=== PATIENT | male | born 1960 | race Caucasian/White ===

== ENCOUNTER 2016-11-18 18:12 | Emergency (ER) | payer OTHER ==
[~2016-11-18] VITALS: Wt 108.5 kg
[~2016-11-18 18:12] MED LIST: CEPH-443 PO; IBUP-1542 PO
[2016-11-18] MEDS ORDERED: MECLIZINE 12.5 MG TAB PO ONE (19:30)
--- NOTE | 2016-11-18 19:55 | RADRPT ---
PROCEDURE: CT Brain without contrast. CLINICAL INDICATION: Dizziness. TECHNIQUE: A CT of the brain was performed on multidetector high-resolution CT scanner utilizing a xial sections from the skull base through the vertex without contrast. The scan was reviewed in sof t tissue brain and high frequency resolution bone algorithm windows. Images were reviewed on a high -resolution PACS workstation. One or more the following does reduction techniques were utilized: Aut omated exposure control, adjustment of the mA/ or kV according to patient's size, or use of iterativ e reconstruction technique. The exam CTDI = 42.93 mGy and the DLP = 720.23 mGy-cm. COMPARISON: None available. FINDINGS: The ventricles and sulci are mildly prominent indicative of volume loss. There is no intracranial h emorrhage, mass effect or midline shift. No abnormal intra-axial or extra-axial fluid collections a re seen. The encarnacion/white matter differentiation is preserved. There are mild scattered foci of hypoattenuation in the white matter, which are nonspecific in etiol ogy but likely reflect chronic small vessel ischemic changes. Small old lacunar infarct is noted in the right lentiform nucleus. There are moderate intracranial vascular calcifications consistent wi th atherosclerosis. The visualized paranasal sinuses are essentially clear. IMPRESSION: 1. No acute intracranial hemorrhage, transcortical infarction or mass effect. 2. Moderate intracranial atherosclerosis and mild chronic small vessel ischemic changes. 3. Small old lacunar infarct is noted in the right lentiform nucleus. 4. Mild generalized cerebral volume loss. RPTAT: HH .Cynthia Goodman MD, MD Date Time Electronically viewed and signed by .Cynthia Goodman MD, MD on 11/18/2016 19:54 .N/
[2016-11-18 19:57] LABS: BASOPHIL # 0.1 10^3/ul (0.0-0.1); EOSINOPHILS # 0.4 10^3/ul (0.0-0.5); EOSINOPHILS % 3.8 % (0.0-7.0); HEMATOCRIT 45.3 % (42.0-52.0); HEMOGLOBIN 15.4 g/dl (14.0-18.0); LYMPHOCYTES % 44.5 % (15.0-51.0); MEAN CORPUSCULAR HEMOGLOBIN 30.7 pg (29.0-33.0); MEAN CORPUSCULAR VOLUME 90.4 fl (82.0-101.0); MEAN PLATELET VOLUME 9.7 fl (7.4-10.4); MONOCYTE # 0.9 10^3/ul (0.3-0.9); MONOCYTES % 7.9 % (0.0-11.0); NEUTROPHILS % 42.1 % (39.0-77.0); PLATELET COUNT 194 10^3/UL (140-415); RED BLOOD COUNT 5.01 10^6/ul (4.70-6.10); RED CELL DISTRIBUTION WIDTH 12.2 % (11.5-14.5); WHITE BLOOD COUNT 11.2 10^3/ul (4.8-10.8)
--- NOTE | 2016-11-18 20:01 | RADRPT ---
PROCEDURE: XR Chest. CLINICAL INDICATION: Chest Pain. TECHNIQUE: Single frontal view of the chest was obtained COMPARISON: Chest x-ray 04/06/2013 FINDINGS: The cardiomediastinal silhouette is within normal limits. No pneumothorax, pleural effusion, or consolidation is identified. There is no evidence of pulmonary vascular congestion. The osseous structures, as visualized, are unremarkable. IMPRESSION: No evidence of acute cardiopulmonary process. RPTAT: QQ Physician Kieran Date Time Electronically viewed and signed by Physician Kieran on 11/18/2016 20:01 CONCHA/
[2016-11-18 20:17] LABS: INR 0.85; PROTIME 11.6 Sec (12.2-14.2); PT RATIO 0.9
[2016-11-18 20:18] LABS: PARTIAL THROMBOPLASTIN TIME 27.1 Sec (25.0-35.0)
[2016-11-18 20:21] LABS: ANION GAP 14 (8-16); BLOOD UREA NITROGEN 12 mg/dl (7-20); CALCIUM 9.1 mg/dl (8.4-10.2); CARBON DIOXIDE 23 mmol/L (21-31); CHLORIDE 103 mmol/L (97-110); CREATININE 0.98 mg/dl (0.61-1.24); GLUCOSE 103 mg/dl (70-220); POTASSIUM 3.7 mmol/L (3.5-5.1); SODIUM 136 mmol/L (135-144)
[2016-11-18 20:33] LABS: TROPONIN-I < 0.012 ng/ml (0.00-0.12)
[2016-11-18] MEDS ORDERED: MECL12.574 PO (20:45)
[2016-11-18 21:10] VITALS: BP 157/88; PULSE 72; RESP 18; TEMP 98.2
--- NOTE | 2016-11-18 21:18 | ERD ---
ER Documentation Chief Complaint Date/Time DATE: 11/18/16 TIME: 21:15 Chief Complaint DIZZINESS, NAUSEA, NO ABD PAIN, ONSET 3 DAYS HPI This patient is a 56-year-old male with past medical history of high cholesterol presenting to the emergency department with complaints of dizziness , nausea, ongoing intimately for the past week. He states he feels the room is spinning. Symptoms are worse when he closes his eyes. He only takes meds for high cholesterol. He does feel slightly dizzy now. He also has nausea. He denies chest pain, shortness of breath, abdominal pain, fevers, or other symptoms. ROS All systems reviewed and are negative except as per history of present illness. Medications Home Meds Active Scripts Meclizine Hcl* (Antivert*) 12.5 Mg Tab, 12.5 MG PO Q6H Y for DIZZINESS, #20 TAB Prov:NICO LEAL PA-C 11/18/16 Ibuprofen* (Motrin*) 600 Mg Tab, 600 MG PO Q6H Y for PAIN AND OR ELEVATED TEMP, #30 TAB Prov:JANETTE HENRIQUEZ NP 10/21/15 Cephalexin* (Keflex*) 500 Mg Capsule, 500 MG PO QID for 10 Days, CAP Prov:JANETTE HENRIQUEZ NP 10/21/15 Reported Medications [none] Unknown Strength No Conflict Check 10/21/15 Allergies Allergies: Coded Allergies: No Known Allergy (Unverified , 09/06/12) PMhx/Soc History of Surgery: Yes (back sx) Anesthesia Reaction: No Hx Neurological Disorder: No Hx Respiratory Disorders: No Hx Cardiac Disorders: No Hx Psychiatric Problems: No Hx Miscellaneous Medical Probl: Yes (high cholesterol) Hx Alcohol Use: Yes Hx Substance Use: No Hx Tobacco Use: Yes (2 packs q day) Smoking Status: Current every day smoker Physical Exam Vitals Vital Signs Date Time Temp Pulse Resp B/P Pulse Ox O2 Delivery O2 Flow Rate FiO2 11/18/16 18:21 98.0 70 18 150/84 97 Physical Exam Const: Nontoxic male in no acute distress. Head: Atraumatic Eyes: Normal Conjunctiva. Mild nystagmus with EOMs. ENT: Normal External Ears, Nose and Mouth. Neck: Full range of motion..~ No meningismus. Resp: Clear to auscultation bilaterally Cardio: Regular rate and rhythm, no murmurs Abd: Soft, non tender, non distended. Normal bowel sounds Skin: No petechiae or rashes Back: No midline or flank tenderness Ext: No cyanosis, or edema Neur: Awake and alert Psych: Normal Mood and Affect Result Diagram: 11/18/16192711/18/161927 Results 24 hrs Laboratory Tests Test 11/18/16 19:28 White Blood Count 11.210^3/ul Red Blood Count 5.0110^6/ul Hemoglobin 15.4g/dl Hematocrit 45.3% Mean Corpuscular Volume 90.4fl Mean Corpuscular Hemoglobin 30.7pg Mean Corpuscular Hemoglobin Concent 34.0g/dl Red Cell Distribution Width 12.2% Platelet Count 05154^3/UL Mean Platelet Volume 9.7fl Neutrophils % 42.1% Lymphocytes % 44.5% Monocytes % 7.9% Eosinophils % 3.8% Basophils % 1.0% Nucleated Red Blood Cells % 0.0/100WBC Neutrophils # (Manual) 510^3/ul Lymphocytes # 5.010^3/ul Monocytes # 0.910^3/ul Eosinophils # 0.410^3/ul Basophils # 0.110^3/ul Nucleated Red Blood Cells # 0.010^3/ul Prothrombin Time 11.6Sec Prothrombin Time Ratio 0.9 INR International Normalized Ratio 0.85 Activated Partial Thromboplast Time 27.1Sec Sodium Level 136mmol/L Potassium Level 3.7mmol/L Chloride Level 103mmol/L Carbon Dioxide Level 23mmol/L Anion Gap 14 Blood Urea Nitrogen 12mg/dl Creatinine 0.98mg/dl Glucose Level 103mg/dl Calcium Level 9.1mg/dl Troponin I < 0.012ng/ml Current Medications Medications (Trade) Dose Ordered Sig/Rosalinda Route PRN Reason Start Time Stop Time Status Last Admin Dose Admin Meclizine HCl (Antivert) 25 mg ONCE ONCE PO 11/18/16 19:30 11/18/16 19:31 DC 11/18/16 20:19 Procedures/MDM EMERGENCY DEPARTMENT COURSE / MEDICAL DECISION MAKING: This is a 56-year-old male who comes to the emergency room secondary to complaints of vertigo. The patient was given p.o. meclizine in the department. On re-evaluation, the patient was feeling improved. Lab results reviewed. CBC: Slight leukocytosis but not significant. No signs of anemia. Chemistry: Within normal limits Troponin: Within normal limits. EKG: Interpreted by ED physician Rate/Rhythm: Sinus rhythm with occasional premature ventricular complexes. QRS, ST, T-waves: No changes consistent w/ acute ischemia Impression: No evidence of ischemia or arrhythmia Radiology: PROCEDURE: XR Chest. CLINICAL INDICATION: Chest Pain. TECHNIQUE: Single frontal view of the chest was obtained COMPARISON: Chest x-ray 04/06/2013 FINDINGS: The cardiomediastinal silhouette is within normal limits. No pneumothorax, pleural effusion, or consolidation is identified. There is no evidence of pulmonary vascular congestion. The osseous structures, as visualized, are unremarkable. IMPRESSION: No evidence of acute cardiopulmonary process. RPTAT: QQ Physician Kieran Date Time Electronically viewed and signed by Physician Kieran on 11/18/2016 20: 01 PROCEDURE: CT Brain without contrast. CLINICAL INDICATION: Dizziness. TECHNIQUE: A CT of the brain was performed on multidetector high-resolution CT scanner utilizing axial sections from the skull base through the vertex without contrast. The scan was reviewed in soft tissue brain and high frequency resolution bone algorithm windows. Images were reviewed on a high- resolution PACS workstation. One or more the following does reduction techniques were utilized: Automated exposure control, adjustment of the mA/ or kV according to patient's size, or use of iterative reconstruction technique. The exam CTDI = 42.93 mGy and the DLP = 720.23 mGy-cm. COMPARISON: None available. FINDINGS: The ventricles and sulci are mildly prominent indicative of volume loss. There is no intracranial hemorrhage, mass effect or midline shift. No abnormal intra- axial or extra-axial fluid collections are seen. The encarnacion/white matter differentiation is preserved. There are mild scattered foci of hypoattenuation in the white matter, which are nonspecific in etiology but likely reflect chronic small vessel ischemic changes. Small old lacunar infarct is noted in the right lentiform nucleus. There are moderate intracranial vascular calcifications consistent with atherosclerosis. The visualized paranasal sinuses are essentially clear. IMPRESSION: 1. No acute intracranial hemorrhage, transcortical infarction or mass effect. 2. Moderate intracranial atherosclerosis and mild chronic small vessel ischemic changes. 3. Small old lacunar infarct is noted in the right lentiform nucleus. 4. Mild generalized cerebral volume loss. RPTAT: HH .Cynthia Goodman MD, Date Time Electronically viewed and signed by .Cynthia Goodman MD, MD on 11/18/2016 19: 54 The primary diagnosis is dizziness of unclear etiology. I have low suspicion for intracranial hemorrhage, TIA, CVA, acute coronary syndrome, sepsis, or other emergent conditions at this time. Discharge: I have discussed the lab results and diagnostic findings with the patient and answered any questions or concerns. The patient was discharged with a prescription for meclizine. The patient was advised to followup with their PMD in 1-2 days and to return to the Emergency Department if there are any new or worsening symptoms. The patient understood and agreed with the diagnosis, treatment and plan. The patient is stable for discharge at this time. Departure Diagnosis: Primary Impression: Dizziness Condition: Fair Patient Instructions: Dizziness (Vertigo) and Balance Problems: Ensuring Your Safety Referrals: [facility] YOU HAVE RECEIVED A MEDICAL SCREENING EXAM AND THE RESULTS INDICATE THAT YOU DO NOT HAVE A CONDITION THAT REQUIRES URGENT TREATMENT IN THE EMERGENCY DEPARTMENT. FURTHER EVALUATION AND TREATMENT OF YOUR CONDITION CAN WAIT UNTIL YOU ARE SEEN IN YOUR DOCTORS OFFICE WITHIN THE NEXT 1-2 DAYS. IT IS YOUR RESPONSIBILITY TO MAKE AN APPOINTMENT FOR FOLOW-UP CARE. IF YOU HAVE A PRIMARY DOCTOR --you should call your primary doctor and schedule an appointment IF YOU DO NOT HAVE A PRIMARY DOCTOR YOU CAN CALL OUR PHYSICIAN REFERRAL HOTLINE AT IF YOU CAN NOT AFFORD TO SEE A PHYSICIAN YOU CAN CHOSE FROM THE FOLLOWING [facility] [address] [facility]. [facility] [address] [facility] [facility] [address] [facility] [address] [facility] [facility] [address] [facility]. [facility] [address] Additional Instructions: Follow up with your PCP within the next 1-3 days for a repeat evaluation. If you require a referral to a specialist, your Primary Care Provider may be able to provide this for you. In most patient cases, a referral is not required. If you have further questions regarding this matter, please ask your Primary Care Provider. Return the the emergency department immediately if symptoms worsen or change. If you have any questions regarding medications, ask your pharmacist or us before you leave. If any adverse reactions, occur while taking your medications, discontinue the treatment and return to the emergency department immediately. If any new or worsening symptoms, uncontrolled fevers, or other unexplained symptoms occur, return to the emergency department immediately. Take your medications as directed, and complete the entire course of treatment. NICO LEAL PA-C Nov 18, 2016 21:18
== END 2016-11-18 21:10 | disposition home or self-care (01) ==
LOC: FTE 18:12
DX: R42 Dizziness and giddiness (principal); F17.210 Nicotine dependence, cigarettes, uncomplicated; R07.9 Chest pain, unspecified
CPT/HCPCS: 36415; 70450; 71010; 80048; 84484; 85025; 85610; 85730; 93005; Z7502; Z7610

== ENCOUNTER 2018-02-06 21:58 | Emergency (ER) | END 2018-02-06 23:00 | disposition short-term general hospital (02) ==